=== PATIENT | male | born 1960 | race Caucasian/White ===

== ENCOUNTER 2021-07-21 17:34 | Emergency (ER) | payer OTHER, SELFPAY ==
[2021-07-21 17:43] VITALS: BP 176/105; PULSE 99; RESP 14; TEMP 36.8; O2SAT 98
--- NOTE | 2021-07-21 18:41 | ED.MALEGU ---
HPI - Male Genitourinary General Chief complaint: Urogenital-Male Stated complaint: poss uti Time Seen by Provider: 07/21/21 18:36 Source: patient and RN notes reviewed Mode of arrival: ambulatory Limitations: no limitations History of Present Illness HPI Narrative: Patient presents today with a 2-day history of difficulty initiating a urine stream, dysuria, lower abdominal pressure, voiding small amounts, and low back pain. Denies hematuria or urinary frequency. He has been drinking mostly coffee and tea, but has increased some cranberry juice intake. He has tried no [id number] medication for symptoms prior to arrival. Denies concerns for sexually transmitted infections. Denies penile discharge or testicular pain. MD Complaint: dysuria Related Data Allergies Allergy/AdvReac Type Severity Reaction Status Date / Time No Known Allergies Allergy Verified 07/21/21 17:55 Review of Systems Review of Systems: CONSTITUTIONAL: Denies body aches, fever, chills, or sweats. EYES: Denies visual changes, redness, or discharge. ENT: Denies rhinorrhea, congestion, sore throat, or otalgia. CARDIOVASCULAR: Denies chest pain, palpitations, or edema. RESPIRATORY: Denies cough or dyspnea. GASTROINTESTINAL: Denies abdominal pain, nausea, vomiting, or diarrhea. GENITOURINARY: + Dysuria, voiding small amounts, difficulty urinating SKIN: Denies rash, itching, or wounds. MUSCULOSKELETAL: Denies joint pain, or myalgia.+ Low back pain NEUROLOGIC: Denies headache, numbness, tingling, or weakness. PSYCH: Denies depression or anxiety. PMFSH Comments At time of signature, I have reviewed and agree with nursing past medical, surgical, social and family history unless otherwise noted. Please see nursing chart for further information. There is no relevant family history pertinent to the presenting complaint Exam Narrative: GENERAL: Well-appearing, well-nourished, and in no acute distress. HEAD: Normocephalic, atraumatic. EYES: EOMI. No redness or drainage. Conjunctivae normal. ENT: Mucous membranes pink and moist. NECK: Normal AROM. CHEST: No respiratory distress. Clear to auscultation. HEART: Regular rate and rhythm. No murmur appreciated. Normal peripheral pulses. ABDOMEN: Soft, nondistended, normal active bowel sounds.+ Suprapubic tenderness.-CVAT MUSCULOSKELETAL: No bony tenderness. EXTREMITIES: Normal range of motion. No edema. SKIN: Warm, dry, no rash. Capillary refill normal. Normal skin turgor. NEURO: No focal deficits. Alert and oriented x3. Gait steady. PSYCH: Normal affect. No signs of depression or anxiety. Course Vital Signs Vital signs: Vital Signs Temperature 98.3 F 07/21/21 17:43 Pulse Rate 99 07/21/21 17:43 Respiratory Rate 14 07/21/21 17:43 Blood Pressure 176/105 H 07/21/21 17:43 Pulse Oximetry 98 07/21/21 17:43 Temperature 98.3 F 07/21/21 17:43 Pulse Rate 99 07/21/21 17:43 Respiratory Rate 14 07/21/21 17:43 Blood Pressure 176/105 H 07/21/21 17:43 Pulse Oximetry 98 07/21/21 17:43 Reviewed. Pt has been instructed to follow up with his PCP regarding his elevated blood pressure today. MDM - Male Genitourinary Differential Diagnosis Differential diagnosis: Likely urinary tract infection, prostatitis and acute retention of urine Lab Data Attestation: I reviewed the patient's lab results. Labs: Urine Glucose Negative Reference Range: Negative Urine Bilirubin 3+ Reference Range: Negative Urine Ketone 2+ Reference Range: Negative Urine Specific [place] 1.030 Reference Range:1.001-1.035 Urine Blood 3+ Reference Range: Ne
== END 2021-07-21 18:54 | disposition home or self-care (01) ==
PROVIDERS: Emergency Provider Nurse Practitioner
DX: N30.01 Acute cystitis with hematuria (principal); Z89.021 Acquired absence of right finger(s)
CPT/HCPCS: 81003; 87086; 99213; G0463

== ENCOUNTER 2021-08-09 12:01 | Emergency (ER) | payer OTHER, SELFPAY ==
--- NOTE | ~2021-08-09 | XR_ITS ---
EXAMINATION: XR chest 2V DATE: 08/09/2021 13:00 INDICATION: Shortness of breath and productive cough TECHNIQUE: PA and lateral views of the chest were obtained. COMPARISON: None FINDINGS: Hyperexpansion of lungs with flattening of the diaphragm and increased retrosternal clear space sugge stive but not diagnostic of COPD. No focal airspace opacities, pulmonary edema, pleural effusion or p neumothorax. The cardiomediastinal silhouette is normal. Mild thoracic spondylosis. IMPRESSION: 1. Appearance suggestive but not diagnostic of COPD. No acute cardiopulmonary disease. 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 Appearance suggestive but not diagnostic of COPD. No acute cardiopulmonary d isease.
[2021-08-09 12:23] VITALS: BP 146/92; PULSE 93; RESP 20; TEMP 37.2; O2SAT 98
--- NOTE | 2021-08-09 13:44 | ED.URI ---
HPI - URI/Sore Throat General Chief Complaint: Upper Respiratory Infection Stated Complaint: congestion sinus pressure History of Present Illness HPI Narrative: This is a 61-year-old male comes in complaining of cough congestion and some shortness of breath patient states that he is a pack-a-day smoker has smoked for years and has no intentions of quitting states that he just needs to feel little bit better symptoms have been going on for the past 2 weeked denies any fever nausea and/or vomiting Related Data Allergies Allergy/AdvReac Type Severity Reaction Status Date / Time No Known Allergies Allergy Verified 08/09/21 12:52 Review of Systems Review of Systems: Congestion shortness of breath All systems reviewed & are unremarkable except as noted in HPI and below PMFSH Comments At time as signature, I have reviewed and agree with nursing past medical, social, surgical and family history. Please see nursing chart for further information. There is no relevant family history pertinent to the presenting complaint. Exam Narrative: GENERAL:Well-appearing, well-nourished, and in no acute distress. HEAD:Normocephalic EYES: PERRLA ENT: Nares clear, moderate rhinorrhea or epistaxis. Mucous membranes moist. CHEST: Diminished to auscultation. coughing No respiratory distress. HEART: Regular rate and rhythm. ABDOMEN: Soft, nontender, nondistended, normal active bowel sounds. EXTREMITIES: Normal range of motion. No edema. SKIN: Warm, dry, no rash. NEURO: No focal deficits. Alert and oriented x3. 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 COMPARISON: None FINDINGS: Hyperexpansion of lungs with flattening of the diaphragm and increased retrosternal clear space suggestive but not diagnostic of COPD. No focal airspace opacities, pulmonary edema, pleural effusion or pneumothorax. The cardiomediastinal silhouette is normal. Mild thoracic spondylosis. IMPRESSION: 1. Appearance suggestive but not diagnostic of COPD. No acute cardiopulmonary disease. Vital Signs Vital signs: Vital Signs Temperature 99.0 F 08/09/21 12:23 Pulse Rate 93 08/09/21 12:23 Respiratory Rate 20 08/09/21 12:23 Blood Pressure 146/92 H 08/09/21 12:23 Pulse Oximetry 98 08/09/21 12:23 Temperature 99.0 F 08/09/21 12:23 Pulse Rate 93 08/09/21 12:23 Respiratory Rate 20 08/09/21 12:23 Blood Pressure 146/92 H 08/09/21 12:23 Pulse Oximetry 98 08/09/21 12:23 MDM - URI/Sore Throat Differential Diagnosis Differential diagnosis: Likely upper respiratory infection, otitis media, sinusitis, viral infection, bronchitis, influenza and pharyngitis Discharge Plan Discharge Clinical Impression: Upper respiratory infection Qualifiers: URI type: unspecified URI Qualified Code(s): J06.9 - Acute upper respiratory infection, unspecified COPD (chronic obstructive pulmonary disease) Qualifiers: COPD type: unspecified COPD Qualified Code(s): J44.9 - Chronic obstructive pulmonary disease, unspecified Patient Disposition: Home, Self-Care Condition: Stable Instructions: Antibiotic Form, How to Stop Smoking (ED), COPD (Chronic Obstructive Pulmonary Disease) (ED), Chronic Lung Disease and Infection Prevention (ED), Dyspnea Scale and Exercise (ED) Additional Instructions: You need a Primary care provider so they can address you COPD and as long as you continue to smoke you will continue to get worse. Viral illness may last between 7-12days; antibiotic is NOT recommended at this time. Recommend antihistamine such as Benadryl at night time and Claritin/Zyrtec/Dorene during the day Also, recommend symptomatic treatment includes: rest, fluids, and increase humidity of the air at home. Recommend Acetaminophen or nonsteroidal anti-inflammatory agents (NSAIDs) as directed in the bottle to
== END 2021-08-09 13:55 | disposition home or self-care (01) ==
PROVIDERS: Emergency Provider Nurse Practitioner Family
DX: J06.9 Acute upper respiratory infection, unspecified (principal); J44.9 Chronic obstructive pulmonary disease, unspecified
CPT/HCPCS: 71046; 99213; G0463